=== PATIENT | female | born 1960 | race Caucasian/White ===

== ENCOUNTER 2019-03-09 00:54 | Outpatient (CLI) | payer OTHER, SELFPAY ==
--- NOTE | 2019-03-09 08:22 | DI.CT_ITS ---
SYMPTOM/DIAGNOSIS: TMJ PAIN AND SUBLUXATION. EVAL FOR PREVIOUS FX JAW M26.69 CT TEMPOROMANDIBULAR JOINT: Transaxial and reconstructed coronal and sagittal images were reviewed. There are perhaps mild degenerative changes involving the TM joints right more prominent then left. There is no evidence of a dislocation or fracture. Mucoperiosteal thickening is noted in the ethmoid sinuses, left more prominent than right. The paranasal sinuses appear otherwise intact. SUMMARY: Minimal degenerative changes involving the temporomandibular joints were identified, right more prominent than left. There is no evidence of a mandibular fracture.
== END 2019-03-09 01:14 ==
PROVIDERS: PCP Physician Assistant Medical; Visit Provider Physician Assistant Medical
DX: M26.623 Arthralgia of bilateral temporomandibular joint (principal); M26.69 Other specified disorders of temporomandibular joint
CPT/HCPCS: 70486